=== PATIENT | male | born 2005 | race Caucasian/White ===

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

== ENCOUNTER 2024-04-18 11:02 | Emergency (ER) | payer SELFPAY ==
[2024-04-18 11:02] VITALS: BP 127/94; PULSE 75; RESP 16; TEMP 36.2; O2SAT 97
--- NOTE | 2024-04-18 11:13 | ED.DENTAL ---
HPI - Dental/Oral General Chief complaint: Dental/Oral Stated complaint: dental pain Time Seen by Provider: 04/18/24 11:09 Source: patient Mode of arrival: ambulatory Limitations: no limitations History of Present Illness HPI Narrative: this is a 18-year-old male who presents with some right upper molar dental pain with surrounding gum inflammation with no submandibular pain no fever chills no shortness of breath MD Complaint: tooth pain Teeth map: 1. Tenderness with surrounding gum inflammation Onset (ago): day(s) Duration: constant Severity: moderate Severity scale (1-10): 7 Relieving factors: NSAIDs Exacerbating factors: chewing and cold Context: history of dental caries Associated symptoms: gum swelling Related Data Home Medications Medication Instructions Recorded Confirmed adalimumab 40 mg/0.8 mL 40 mg subcut ONCE 12/20/19 04/18/24 subcutaneous syringe kit (Humira) methotrexate (PF) 12.5 mg/0.4 mL 12.5 mg subcut WEEKLY 12/20/19 04/18/24 subcutaneous auto-injector Allergies Allergy/AdvReac Type Severity Reaction Status Date / Time codeine Allergy Mild Unknown Verified 04/18/24 11:04 Penicillins Allergy Mild Unknown Verified 04/18/24 11:04 Sulfa (Sulfonamide Allergy Mild Unknown Verified 04/18/24 11:04 Antibiotics) Review of Systems Review of Systems: All systems reviewed & are unremarkable except as noted in HPI and below PMFSH Past Medical History Medical History (Updated 04/18/24 @ 11:16 by Lizandro Ware MD) Rheumatoid arthritis Social History Social History Social History: lives with family Smoking status: Never smoker Alcohol intake: never Substance use: never Gender identity (if verbalized by the patient): Male Exam Const: General: healthy appearing and no acute distress Nutritional Appearance: well nourished Orientation/consciousness: patient oriented x3 Limitations: no limitations HENMT: Head: normal to inspection Eyes: Conjunctivae: conjunctivae normal EOM: EOMs intact bilaterally Neck: Neck: normal visual inspection and no lymphadenopathy Resp: Effort & Inspection: normal respiratory effort Auscultation: clear to auscultation bilaterally Cardio: Rate: regular rate Rhythm: regular rhythm Course Course Emergency Course: patient after reassessment after receiving 60mg IM Toradol pain level has improved and will be sending antibiotics and pain medication to his local pharmacy. Vital Signs Vital signs: Vital Signs Temperature 36.2 C L 04/18/24 11:02 Pulse Rate 75 04/18/24 11:02 Respiratory Rate 16 04/18/24 11:02 Blood Pressure 127/94 H 04/18/24 11:02 Pulse Oximetry 97 04/18/24 11:02 Oxygen Delivery Room Air 04/18/24 11:02 Temperature 36.2 C L 04/18/24 11:02 Pulse Rate 75 04/18/24 11:02 Respiratory Rate 16 04/18/24 11:02 Blood Pressure 127/94 H 04/18/24 11:02 Pulse Oximetry 97 04/18/24 11:02 Oxygen Delivery Room Air 04/18/24 11:02 Critical Care Time Critical Care Time Critical Care Time: No Discharge Plan Discharge Clinical Impression: Toothache, Dental abscess Patient Disposition: Home, Self-Care Condition: Stable Instructions: Antibiotic Form, Dental Abscess (ED) Additional Instructions: Advised to take medication as prescribed and follow-up with Primary/ dentist within a week further evaluation treatment. Prescriptions: New naproxen 500 mg tablet 500 mg PO BID Qty: 14 0RF clindamycin HCl 300 mg capsule 300 mg PO Q6H 7 Days Qty: 28 0RF No Action Humira 40 mg/0.8 mL Syringe Kit 40 mg SUBCUT ONCE methotrexate (PF) 12.5 mg/0.4 mL Auto-Injector 12.5 mg SUBCUT WEEKLY Follow-up/Referrals: UNKNOWN,DOCTOR [Primary Care Provider] - Stand Alone Forms: Work/School Release IP Time of Disposition: 11:18
[2024-04-18] MEDS: KETOROLAC (*BKC) 60 MG/2 ML VIAL IM (11:20)
[2024-04-18 11:47] VITALS: BP 127/94; PULSE 75; RESP 16; TEMP 36.2; O2SAT 97
== END 2024-04-18 11:47 | disposition home or self-care (01) ==
LOC: CHSED 11:22
PROVIDERS: Emergency Provider Emergency Medicine
DX: K04.7 Periapical abscess without sinus (principal)
CPT/HCPCS: 96372; 99283; J1885